=== PATIENT | male | born 2005 | race Caucasian/White ===

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

== ENCOUNTER 2024-05-12 09:38 | Emergency (ER) | payer OTHER ==
[~2024-05-12] VITALS: Ht 185.4 cm; Wt 108.9 kg
[2024-05-12 10:10] VITALS: BP 151/75
[2024-05-12] MEDS ORDERED: Ketorolac Tromethamine 15mg Vial IM ONE (10:15)
[2024-05-12] MEDS ORDERED: HYDR1TAB94 PO (12:56)
[2024-05-12] MEDS ORDERED: HYDROcodone 5-APAP 325 TAB PO ONE (13:10)
== END 2024-05-12 13:27 | disposition home or self-care (01) ==
LOC: ER 09:38
DX: S92.102A Unspecified fracture of left talus, initial encounter for closed fracture (principal); X58.XXXA Exposure to other specified factors, initial encounter
CPT/HCPCS: 29515; 73610; 73700; 96372-59; 99284-25; A9270; J1885